=== PATIENT | male | born 1995 | race Caucasian/White ===

== ENCOUNTER 2020-07-12 06:24 | Emergency (ER) | payer SELFPAY ==
[~2020-07-12] VITALS: Ht 177.8 cm; Wt 92.3 kg
[2020-07-12 06:31] VITALS: BP 113/83
--- NOTE | 2020-07-12 06:43 | NUR ---
THIS IS A 25Y M THAT COMES IN AFTER AWAKENING TO PAIN IN R ARM/ SHOULDER, PT STS WAS DISLOCATED WEDNESDAY AND PUT BACK INTO PLACE. PT STS HE HAS BEEN WEARING HIS SLING SOMETIMES. PT CONNECTED TO MONITORING VSS NADN
--- NOTE | 2020-07-12 06:45 | NUR ---
MD AT BEDSIDE TO ASSESS PT
--- NOTE | 2020-07-12 06:53 | NUR ---
REPORT GIVEN TO ONCOMING RN
--- NOTE | 2020-07-12 07:01 | NUR ---
REPORT FROM LAW MAGEN AT BEDSIDE
--- NOTE | 2020-07-12 07:21 | NUR ---
SHOULDER IN PLACE BY LAW, PAIN RELIEVED, SHOULDER IN IMMOBILIZER. WILL MEDICATED FOR PAIN
[2020-07-12] MEDS ORDERED: KETOROLAC 60 MG/2 ML ONE (07:23)
[2020-07-12] MEDS ORDERED: ACETAMINOPHEN 500 MG TABLET ONE (07:23)
[2020-07-12] MEDS ORDERED: ACETAMINOPHEN 500 MG TABLET PO ONE (07:30)
[2020-07-12] MEDS ORDERED: KETOROLAC 60 MG/2 ML IM ONE (07:30)
--- NOTE | 2020-07-12 08:51 | NUR ---
Patient/Caregiver given discharge instructions and they have confirmed that they understand the instructions. Patient ambulatory with steady gait.
== END 2020-07-12 09:06 | disposition home or self-care (01) ==
LOC: ED 08:50
DX: S43.004A Unspecified dislocation of right shoulder joint, initial encounter (principal); W01.0XXA Fall on same level from slipping, tripping and stumbling without subsequent striking against object, initial encounter; Y93.89 Activity, other specified; Y92.89 Other specified places as the place of occurrence of the external cause; Y99.8 Other external cause status
CPT/HCPCS: 23650; 73030; 96372; 99284; J1885

== ENCOUNTER 2020-08-21 07:36 | Outpatient (CLI) | payer MEDICAID ==
[2020-08-21] MEDS ORDERED: ROPivacaine/PF 0.2%, 10 ML ONE (07:38)
[2020-08-21] MEDS ORDERED: LIDOCAINE-MPF 1%, 5ML ONE (07:38)
[2020-08-21] MEDS ORDERED: GADOTERATE 2.5 MMOL/5 ML VIAL ONE (08:31)
[2020-08-21] MEDS ORDERED: OMNIPAQUE 300 MG/ML, 10ML VIAL ONE (08:31)
== END 2020-08-21 23:59 | disposition home or self-care (01) ==
LOC: RAD 07:36
PROVIDERS: ATTEND Orthopaedic Surgery
DX: M25.511 Pain in right shoulder (principal); M24.411 Recurrent dislocation, right shoulder; J45.909 Unspecified asthma, uncomplicated
CPT/HCPCS: 23350; 73040; 73222; A9575; J2795; Q9967

== ENCOUNTER 2020-09-20 08:36 | Emergency (ER) | payer MEDICAID ==
[~2020-09-20] VITALS: Ht 177.8 cm; Wt 91.0 kg
[2020-09-20] MEDS ORDERED: SODIUM CHLORIDE FLUSH 10ML SYR IVF ONE (09:00)
[2020-09-20] MEDS ORDERED: ONDANSETRON 2MG/ML, 2ML IVPush ONE (09:00)
[2020-09-20] MEDS ORDERED: PLEASE ENTER HEIGHT AND WEIGHT MC SCH (09:00)
[2020-09-20] MEDS ORDERED: FAMO-79 PO (09:00)
[2020-09-20] MEDS ORDERED: SODIUM CHLORIDE 0.9% 1,000ML IVBOLUS ONE (09:00)
[2020-09-20] MEDS ORDERED: MORPHINE SULFATE 4 MG/ML, 1ML IVPush PRN (09:00)
[2020-09-20] MEDS ORDERED: ONDANSETRON 2MG/ML, 2ML ONE (09:24)
[2020-09-20] MEDS ORDERED: FAMOTIDINE 20 MG/2 ML ONE (09:24)
[2020-09-20 09:29] LABS: ALANINE AMINOTRANSFERASE 30 U/L (12-78); ALBUMIN 2.6 g/dL (3.4-5.0); ANION GAP 7 mmol/L (5-15); CHLORIDE 113 mmol/L (98-107)
[2020-09-20] MEDS ORDERED: FAMOTIDINE 20 MG/2 ML IVPush ONE (09:30)
[2020-09-20 09:31] LABS: ALKALINE PHOSPHATASE 49 U/L (45-117); BILIRUBIN,TOTAL 0.5 mg/dL (0.2-1.0); TOTAL PROTEIN 5.4 g/dL (6.4-8.2)
--- NOTE | 2020-09-20 09:34 | NUR ---
DR. MARS AT BEDSIDE. 1ST LITER NS DONE AND BP=57/26. JOHNY FULTON NOTIFIED. ANOTHER LITER OF NS STARTED. PEPCID IV AND ZOFRAN IV GIVEN.
--- NOTE | 2020-09-20 09:47 | NUR ---
PT TRANSFERED FROM ED 20 TO T4. REPORT RECIEVED FROM KEENAN FIGUEROA.
--- NOTE | 2020-09-20 09:48 | NUR ---
REFER TO RAPID/EMERGENCY BLOOD TRANSFUSION SHEET IN CHART. BLOOD VERIFIED WITH KEENAN FIGUEROA.
[2020-09-20 09:49] VITALS: BP 85/38
[2020-09-20 09:57] LABS: BASOPHILS % (AUTO) 0 % (0-1); EOSINOPHILS % (AUTO) 0 % (1-7); LYMPHOCYTES % (AUTO) 12 % (22-44); MEAN CORPUSCULAR HEMOGLOBIN 30.3 pg (27.5-34.5); MEAN CORPUSCULAR HGB CONC 32.2 g/dL (33.2-36.2); MONOCYTES % (AUTO) 6 % (2-9); NEUTROPHILS % (AUTO) 81 % (42-75); PLATELET COUNT 225 x10^3/uL (130-400); RED BLOOD COUNT 3.33 x10^6/uL (4.38-5.82); RED CELL DISTRIBUTION WIDTH 13.1 % (9.4-14.8)
[2020-09-20 09:59] LABS: MD NO
--- NOTE | 2020-09-20 09:59 | NUR ---
PT MOVED TO TRAUMA 4 FOR EVIDENCE OF BLOOD IN THE ABD/HYPOTENSION. REPORT GIVEN TO HENRY BLACK. EMERGENCY TRANSFUSION OF O-NEG BLOOD STARTED.
--- NOTE | 2020-09-20 10:08 | NUR ---
REPORT TO [facility] CCT TEAM, GARTH FIGUEROA. PT TRANSPORTED TO [facility]
== END 2020-09-20 10:29 | disposition short-term general hospital (02) ==
LOC: ED 10:23
DX: I95.9 Hypotension, unspecified (principal); R00.0 Tachycardia, unspecified; R58 Hemorrhage, not elsewhere classified; R11.2 Nausea with vomiting, unspecified; R10.13 Epigastric pain; Z90.89 Acquired absence of other organs; Z79.899 Other long term (current) drug therapy
CPT/HCPCS: 36415; 36430; 76700; 80053; 83690; 85025; 86900; 86923; 93005; 96361; 96374; 96375; 99291; J2405; J7030; P9016